=== PATIENT | female | born 1965 | race Caucasian/White ===

== ENCOUNTER 2020-05-05 16:10 | Emergency (ER) | payer OTHER ==
[~2020-05-05] VITALS: Ht 157.5 cm; Wt 66.7 kg
[2020-05-05 16:32] VITALS: Ht 157.5 cm; Wt 66.7 kg
[2020-05-05 17:32] VITALS: BP 98/77
== END 2020-05-05 17:32 | disposition home or self-care (01) ==
LOC: ED 16:10
DX: H61.22 Impacted cerumen, left ear (principal)

== ENCOUNTER 2020-07-05 09:10 | Emergency (ER) | payer OTHER ==
[~2020-07-05] VITALS: Ht 157.5 cm; Wt 65.8 kg
[2020-07-05 09:16] VITALS: Ht 157.5 cm; Wt 65.8 kg
[2020-07-05 10:30] VITALS: BP 98/53
== END 2020-07-05 11:25 | disposition home or self-care (01) ==
LOC: ED 09:10
DX: H61.22 Impacted cerumen, left ear (principal)

== ENCOUNTER 2020-08-23 10:41 | Emergency (ER) | payer OTHER | END 2020-08-23 10:54 | disposition left against medical advice (07) | LOC: ED 10:41 | DX: Z53.21 Procedure and treatment not carried out due to patient leaving prior to being seen by health care provider (principal) ==

== ENCOUNTER 2020-08-27 12:39 | Emergency (ER) | payer OTHER ==
[~2020-08-27] VITALS: Ht 157.5 cm; Wt 64.4 kg
[2020-08-27 13:15] VITALS: Ht 157.5 cm; Wt 64.4 kg
[2020-08-27] MEDS ORDERED: CORTOS AU (15:30)
[2020-08-27 15:52] VITALS: BP 107/71
== END 2020-08-27 15:52 | disposition home or self-care (01) ==
LOC: ED 12:39
DX: H60.92 Unspecified otitis externa, left ear (principal)